=== PATIENT | male | born 1955 | race Caucasian/White ===

== ENCOUNTER 2017-01-04 01:39 | Emergency (ER) | payer SELFPAY ==
[2017-01-04] MEDS ORDERED: IPRATROPIUM/ALBUTEROL 3 ML NEB INH STA (01:43)
[2017-01-04] MEDS ORDERED: IPRATROPIUM/ALBUTEROL 3 ML NEB INH ONE (01:55)
[2017-01-04] MEDS ORDERED: methylPREDNISolone SUCCINATE 125 MG/2 ML VIAL IVP STA (01:59)
[2017-01-04] MEDS ORDERED: methylPREDNISolone SUCCINATE 125 MG/2 ML VIAL IVP ONE (02:11)
[2017-01-04 02:19] LABS: BASOPHILS % (AUTO) 0.2 %; HCT - HEMATOCRIT 40.3 % (42.0-52.0); HGB - HEMOGLOBIN 13.8 g/dL (14.0-18.0); LYMPHOCYTES # (AUTO) 0.1 10^3/uL (1.5-3.5); LYMPHOCYTES % (AUTO) 1.4 %; MEAN CORPUSCULAR HEMOGLOBIN 31.9 pg (27.0-31.0); MEAN CORPUSCULAR HGB CONC 34.4 g/dL (32.0-36.0); MEAN CORPUSCULAR VOLUME 92.6 fL (80.0-94.0); MEAN PLATELET VOLUME 7.8 fL (7.4-11.4); MONOCYTES # (AUTO) 0.6 10^3/uL (0.0-1.0); MONOCYTES % (AUTO) 6.3 %; NEUTROPHILS # (AUTO) 8.9 10^3/uL (1.5-6.6); NEUTROPHILS % (AUTO) 92.1 %; NUCLEATED RED BLOOD CELLS AUTO 0.1 /100WBC; RED BLOOD COUNT 4.35 10^6/uL (4.70-6.10); RED CELL DISTRIBUTION WIDTH 12.1 % (12.0-15.0); UNCORRECTED WHITE BLOOD COUNT 9.7 x10^3/uL; WHITE BLOOD COUNT 9.7 x10^3/uL (4.8-10.8)
[2017-01-04 02:25] LABS: ALBUMIN/GLOBULIN RATIO 1.2 (1.0-2.2); BILIRUBIN,TOTAL 0.2 mg/dL (0.2-1.0); CALCIUM 8.8 mg/dL (8.5-10.3); CREATININE 0.7 mg/dL (0.6-1.2); POTASSIUM 4.1 mmol/L (3.5-5.0); TOTAL PROTEIN 7.6 g/dL (6.7-8.2)
[2017-01-04] MEDS ORDERED: ALBUTEROL NEB 2.5 MG/3 ML INH STA (02:36)
[2017-01-04] MEDS ORDERED: ALBUTEROL NEB 2.5 MG/3 ML INH ONE (02:45)
--- NOTE | 2017-01-04 02:59 | XRAY Preliminary Report ---
Exam: XR Chest 1 View IMPRESSION: No acute cardiopulmonary abnormality demonstrated. Possible 6.6 mm left mid-upper lung no dule. Nonemergent outpatient noncontrast chest CT recommended for further assessment. [facility] SITE ID: [id number]
--- NOTE | 2017-01-04 03:02 | XRAY Report ---
EXAM: CHEST RADIOGRAPHY EXAM DATE: 01/04/2017 02:37 AM. CLINICAL HISTORY: Cough, shortness of breath COMPARISON: None. TECHNIQUE: 1 view. FINDINGS: Lungs/Pleura: No focal opacities evident. No pleural effusion. No pneumothorax. Small possible nodula r density within the left upper lung, projecting in between the posterior lateral aspect of the left fifth and sixth ribs. Mediastinum: Within exam limitations, cardiomediastinal contour is normal. Other: Small hiatal hernia. IMPRESSION: No acute cardiopulmonary abnormality demonstrated. Possible 6.6 mm left mid-upper lung no dule. Nonemergent outpatient noncontrast chest CT recommended for further assessment. [facility] Referring Provider Line: [phone] SITE ID: [id number]
[2017-01-04] MEDS ORDERED: AZITHROMYCIN 250 MG TABLET PO STA (03:16)
[2017-01-04] MEDS ORDERED: AZITHROMYCIN 250 MG TABLET PO ONE (03:23)
[2017-01-04] MEDS ORDERED: ALBUTEROL 8 GM INHALER INH STA (03:27)
[2017-01-04] MEDS ORDERED: ALBUTEROL 18 GM INHALER INH ONE (03:37)
--- NOTE | 2017-01-04 03:42 | ED Physician Documentation ---
PD HPI DYSPNEA - Stated complaint Stated Complaint: SOA - Chief complaint Chief Complaint: Resp - History obtained from History obtained from: Patient - History of Present Illness Timing - onset: How many days ago (3) Timing - onset during: Rest Timing - details: Gradual onset, Still present Inciting event(s): URI Improved by: O2 Similar symptoms before: No diagnosis Recently seen: Not recently seen - Additional information Additional information: Patient is a 61 year old male with a history of 20 pack year history who is presenting to the emergency department for wheezing and cough. Patient states that the symptoms have been going on for the last three days, but it go progressively worse so he came to the emergency department for evaluation. Patient denied any chest pain or fevers and states that he has never been diagnosed with copd or emphysema Review of Systems Constitutional: denies: Fever, Chills Eyes: denies: Decreased vision, Photophobia Ears: denies: Ear pain, Drainage/discharge Nose: denies: Congestion, Epistaxis Throat: denies: Dental pain / toothache, Oral lesions / sores Cardiac: denies: Chest pain / pressure, Palpitations, Calf pain Respiratory: reports: Dyspnea, Cough, Wheezing. denies: Hemoptysis GI: denies: Nausea, Vomiting : denies: Dysuria, Frequency, Hesitancy Skin: denies: Rash, Lesions Musculoskeletal: denies: Neck pain, Back pain Neurologic: denies: Generalized weakness, Focal weakness, Numbness Immunocompromised: denies: Immunocompromised PD PAST MEDICAL HISTORY - Past Medical History Past Medical History: No - Past Surgical History Past Surgical History: Yes - Present Medications Home Medications: Ambulatory Orders Medication Instructions Recorded Confirmed Albuterol Sulf [Ventolin Hfa 2 puffs INH Q4HR PRN #1 inhaler 01/04/17 Inhaler] Azithromycin [Zithromax] 250 mg PO DAILY #4 tablet 01/04/17 Prednisone 40 mg PO DAILY 5 Days 01/04/17 - Allergies Allergies/Adverse Reactions: Allergies Allergy/AdvReac Type Severity Reaction Status Date / Time Penicillins Allergy Rash Verified 01/04/17 01:49 - Social History Does the pt smoke?: Yes Smoking Status: Current every day smoker Does the pt drink ETOH?: Yes Does the pt have substance abuse?: No - Immunizations Immunizations are current?: No - POLST Patient has POLST: No PD ED PE NORMAL - Vitals Vital signs reviewed: Yes - General General: Alert and oriented X 3 - HEENT HEENT: Atraumatic, PERRL - Neck Neck: Supple, no meningeal sign, No JVD - Cardiac Cardiac: RRR, No murmur - Abdomen Abdomen: Soft - Derm Derm: Normal color, Warm and dry, No rash - Extremities Extremities: No deformity, No edema, No calf tenderness / cord - Neuro Neuro: Alert and oriented X 3, No motor deficit, No sensory deficit, Normal speech PD ED PE EXPANDED - General General: Alert, In distress - HEENT HEENT: Dry mucous membranes - Respiratory Respiratory: Distress, Labored, Accessory mm use, Wheezing, Right upper lobe, Right middle lobe, Left upper lobe Results - Vitals Vitals: Vital Signs - 24 hr 01/04/17 01/04/17 01/04/17 01:40 02:01 02:12 Temperature 37.7 C H Heart Rate 74 85 90 Respiratory 28 H 21 28 H Rate Blood Pressure 141/71 H 131/64 H O2 Saturation 89 L 96 01/04/17 01/04/17 01/04/17 02:22 02:40 02:45 Temperature Heart Rate 85 92 97 Respiratory 25 H 25 H 25 H Rate Blood Pressure 141/74 H 130/59 L O2 Saturation 92 93 01/04/17 03:23 Temperature 38.6 C H Heart Rate 100 Respiratory 20 Rate Blood Pressure 117/57 L O2 Saturation 94 Oxygen O2 Source Nasal cannula Oxygen Flow Rate 3 - Labs Labs: Laboratory Tests 01/04/17 01/04/17 01/04/17 02:05 02:05 02:05 WBC 9.7 RBC 4.35 L Hgb 13.8 L Hct 40.3 L MCV 92.6 MCH 31.9 H MCHC 34.4 RDW 12.1 Plt Count 182 MPV 7.8 Neut # 8.9 H Lymph # 0.1 L [place] # 0.6 Eos # 0.0 Baso # 0.0 Absolute Nucleated RBC 0.01 Nucleated RBCs 0.1 Sodium 128 L Potassium 4.1 Chloride 92 L Carbon Dioxide 27 Anion Gap 9.0 BUN 7 Creatinine 0.7 Estimated GFR (MDRD) 114 Glucose 152 H Calcium 8.8 Total Bilirubin 0.2 AST 41 ALT 17 Alkaline Phosphatase 48 Troponin I < 0.04 B-Natriuretic Peptide Total Protein 7.6 Albumin 4.2 Globulin 3.4 Albumin/Globulin Ratio 1.2 Lipase 17 L 01/04/17 02:05 WBC RBC Hgb Hct MCV MCH MCHC RDW Plt Count MPV Neut # Lymph # [place] # Eos # Baso # Absolute Nucleated RBC Nucleated RBCs Sodium Potassium Chloride Carbon Dioxide Anion Gap BUN Creatinine Estimated GFR (MDRD) Glucose Calcium Total Bilirubin AST ALT Alkaline Phosphatase Troponin I B-Natriuretic Peptide 296 H Total Protein Albumin Globulin Albumin/Globulin Ratio Lipase - Rads (name of study) chest x-ray Radiology: Final report received (small pulmonary nodule) PD MEDICAL DECISION MAKING - ED course Complexity details: reviewed old records, reviewed results, re-evaluated patient , considered differential, d/w patient, d/w family ED course: Patient was seen and examined at bedside. Patient was in moderate respiratory distress with accessory muscle use. Patient was treated with two duonebs and steroids. chest x-ray and labs were ordered. patient responded well to the therapy. Patient's wheezing had diminished but still had some residual wheezing and was treated with 2 albuterol treatments and azithromcyin. Patient continued to improve. patient was asking to go home stating that he felt much better. Patient was given an inhaler with instruction on how to use it. Patient was given detailed discharge and return instructions. patient was stable for discharge with outpatient follow up. Departure - Departure Disposition: 01 Home, Self Care Clinical Impression: Moderate COPD (chronic obstructive pulmonary disease) Condition: Good Instructions: COPD Dc Follow-Up: Reginald Hyatt MD [Primary Care Provider] - Within 3 Days Prescriptions: Albuterol Sulf [Ventolin Hfa Inhaler] 2 puffs INH Q4HR PRN #1 inhaler PRN Reason: Wheezing Prednisone 40 mg PO DAILY 5 Days Azithromycin [Zithromax] 250 mg PO DAILY #4 tablet Comments: Your symptoms today are being caused by reactive airway disease with a possible underlying pneumonia. YOu had your first dose of antibiotics today as well as steroids,. you will need to be on the steroids and antibiotics for the next four days. you can take the albuterol every four housr as needed over the next couple fo days. it is important that you follow up with your doctor on thursday. you should return to the emergency department at any time
[2017-01-04 03:59] VITALS: BP 115/55
== END 2017-01-04 03:59 | disposition home or self-care (01) ==
LOC: ED 01:39
DX: J44.9 Chronic obstructive pulmonary disease, unspecified (principal); F17.200 Nicotine dependence, unspecified, uncomplicated
CPT/HCPCS: 36415; 71010; 80053; 83690; 83880; 84484; 85025; 93005; 94640; 94664; 96374; 99284; A9270; J7613; J7620

== ENCOUNTER 2022-07-21 13:53 | Outpatient (CLI) | payer MEDICARE ==
--- NOTE | 2022-07-21 14:11 | XRAY Report ---
PROCEDURE: Chest 2 View X-Ray INDICATIONS: ASTHMA WITH COPD TECHNIQUE: 2 views of the chest were acquired. COMPARISON: None. FINDINGS: Surgical changes and devices: None. Lungs and pleura: No pleural effusions or pneumothorax. Lungs are clear. Peribronchial cuffing. Mediastinum: Mediastinal contours are normal. Heart size is normal. Bones and chest wall: No suspicious bony abnormalities. Soft tissues appear unremarkable. IMPRESSION: Peribronchial cuffing, suggestive of infectious or inflammatory bronchitis. Reviewed by: Lester Oconnor on 07/21/2022 2:10 PM [facility] Approved by: Lester Oconnor on 07/21/2022 2:10 PM [facility] Station ID: [id number]
== END 2022-07-21 13:55 | disposition home or self-care (01) ==
LOC: DI.S 13:53
PROVIDERS: ATTEND Emergency Medicine
DX: J44.9 Chronic obstructive pulmonary disease, unspecified (principal)

== ENCOUNTER 2023-04-13 08:58 | Outpatient (CLI) | payer MEDICARE ==
--- NOTE | 2023-04-13 10:11 | CT Report ---
PROCEDURE: Low Dose Lung Cancer Screen INDICATIONS: LUNG CA SCREENING TECHNIQUE: A CT scan of the chest was performed. Intravenous contrast media was not administered. Images were re corded and evaluated at appropriate window settings. Reformats: axial MIP of the chest, coronal and s agittal. For radiation dose reduction, the following was used: automated exposure control, adjustment of mA and/or kV according to patient size. COMPARISON: CXR 07/21/2022. FINDINGS: Image quality: Excellent. Prior cancer history: Unsure. Lungs and pleura: No pleural effusions. No pneumothorax. Left lower lobe pulmonary nodule measuring 0 .4 cm, (3/174). A few calcified granulomas. A few scattered areas of ill-defined groundglass opacity. Trace secretions in the trachea. No significant bronchiectasis. Mild emphysematous change suspected. Mediastinum: Heart size is normal. Mild coronary artery calcifications. No pericardial effusion. No l arge vessel abnormality. No mediastinal adenopathy by size criteria. Chest wall and lower neck: Thyroid is unremarkable. No axillary or supraclavicular adenopathy by size . Bones: No aggressive osseous abnormality. Upper Abdomen: Calcified granuloma in the right lobe of the liver. No adrenal nodule. IMPRESSION: Left lower lobe pulmonary nodule measuring 0.4 cm. Lung RAD: 2 - Benign. Recommendation: Continue annual screening in 12 Months with LDCT Non-Lung Significant Findings: None. A few scattered areas of ill-defined groundglass opacity. This could represent atelectasis, infectiou s/inflammatory etiology, or scarring/early interstitial lung disease. Recommend attention on follow-u p CT in 12 months. Reviewed by: Kolton Flores MD on 04/13/2023 10:10 AM [facility] Approved by: Kolton Flores MD on 04/13/2023 10:10 AM PST Station ID: [id number]
== END 2023-04-13 08:59 | disposition home or self-care (01) ==
LOC: DI 08:58
PROVIDERS: ATTEND Nurse Practitioner Acute Care
DX: Z12.2 Encounter for screening for malignant neoplasm of respiratory organs (principal); R91.1 Solitary pulmonary nodule

== ENCOUNTER 2023-06-16 11:00 | Outpatient (CLI) | payer MEDICARE ==
[2023-06-16 14:56] LABS: PT - PROTHROMBIN TIME 11.4 secs (9.9-12.6)
== END 2023-06-16 11:01 | disposition home or self-care (01) ==
LOC: LAB.S 11:00
PROVIDERS: ATTEND Nurse Practitioner Acute Care
DX: K75.3 Granulomatous hepatitis, not elsewhere classified (principal)
CPT/HCPCS: 36415; 81599; 85610; 86480

== ENCOUNTER 2023-10-13 11:30 | Outpatient (CLI) | payer MEDICARE ==
[2023-10-13 15:06] LABS: BASOPHILS % (AUTO) 0.4 %; EOSINOPHILS # (AUTO) 0.1 10^3/uL (0.0-0.7); EOSINOPHILS % (AUTO) 1.4 %; HCT - HEMATOCRIT 51.7 % (42.0-52.0); HGB - HEMOGLOBIN 16.1 g/dL (14.0-18.0); LYMPHOCYTES # (AUTO) 0.9 10^3/uL (1.5-3.5); LYMPHOCYTES % (AUTO) 12.5 %; MEAN CORPUSCULAR HEMOGLOBIN 29.3 pg (27.0-31.0); MEAN CORPUSCULAR HGB CONC 31.1 g/dL (32.0-36.0); MEAN PLATELET VOLUME 10.3 fL (7.4-11.4); MONOCYTES # (AUTO) 0.6 10^3/uL (0.0-1.0); MONOCYTES % (AUTO) 8.5 %; NEUTROPHILS # (AUTO) 5.6 10^3/uL (1.5-6.6); NEUTROPHILS % (AUTO) 76.9 %; PLT - PLATELET COUNT 308 10^3/uL (130-450); RED CELL DISTRIBUTION WIDTH 12.6 % (12.0-15.0); WHITE BLOOD COUNT 7.2 x10^3/uL (4.8-10.8)
[2023-10-13 16:08] LABS: THYROID STIMULATING HORMONE 1.33 uIU/mL (0.34-5.60)
[2023-10-13 16:30] LABS: ALBUMIN 4.2 g/dL (3.2-5.5); ALBUMIN/GLOBULIN RATIO 1.1 (1.0-2.2); ALKALINE PHOSPHATASE 65 IU/L (42-121); ALT ALANINE AMINOTRANSFERASE 12 IU/L (10-60); AST ASPARTATE AMINOTRANSFERASE 16 IU/L (10-42); BILIRUBIN,TOTAL 0.6 mg/dL (0.2-1.0); BUN - BLOOD UREA NITROGEN 8 mg/dL (6-20); CALCIUM 9.8 mg/dL (8.5-10.3); CARBON DIOXIDE - CO2 25 mmol/L (21-32); CHLORIDE 101 mmol/L (101-111); CHOL/HDL RATIO 3.8 (<5.0); CHOLESTEROL 240 mg/dL; CREATININE 0.9 mg/dL (0.6-1.3); GFR - MDRD 84 (>89); GLUCOSE 95 mg/dL (74-104); HDL CHOLESTEROL 64 mg/dL; LDL CHOLESTEROL,CALCULATED 159 mg/dL; LDL/HDL RATIO 2.5 (<3.6); POTASSIUM 4.2 mmol/L (3.5-4.5); SODIUM 137 mmol/L (135-145); TOTAL PROTEIN 7.9 g/dL (6.4-8.9); TRIGLYCERIDES 86 mg/dL (48-352); VLDL CHOLESTEROL 17 mg/dL
== END 2023-10-13 11:31 | disposition home or self-care (01) ==
LOC: LAB.S 11:30
PROVIDERS: ATTEND Nurse Practitioner Acute Care
DX: Z12.5 Encounter for screening for malignant neoplasm of prostate (principal); Z13.220 Encounter for screening for lipoid disorders; Z13.228 Encounter for screening for other metabolic disorders; Z13.29 Encounter for screening for other suspected endocrine disorder; Z13.0 Encounter for screening for diseases of the blood and blood-forming organs and certain disorders involving the immune mechanism
CPT/HCPCS: 36415; 80053; 80061; 84443; 85025; G0103; 83721; 84153